=== PATIENT | male | born 1945 | race Caucasian/White ===

== ENCOUNTER 2019-03-23 06:00 | Outpatient (RCR) | payer MEDICARE, BC, SELFPAY | END 2019-03-24 00:01 | LOC: TST 06:00 | PROVIDERS: Family Provider Family Medicine; Visit Provider Family Medicine | DX: R13.10 Dysphagia, unspecified (principal) | CPT/HCPCS: 92523; 92526; 92610 ==

== ENCOUNTER 2019-03-25 06:00 | Outpatient (RCR) | payer MEDICARE, BC, SELFPAY | END 2019-04-24 23:59 | disposition home or self-care (01) | LOC: TST 06:00 | PROVIDERS: Family Provider Family Medicine; PCP Family Medicine; Visit Provider Family Medicine | DX: R13.10 Dysphagia, unspecified (principal) | CPT/HCPCS: 92507; 92526 ==

== ENCOUNTER 2019-04-25 06:00 | Outpatient (RCR) | payer MEDICARE, BC, SELFPAY | END 2019-05-23 23:59 | disposition home or self-care (01) | LOC: TST 06:00 | PROVIDERS: Family Provider Family Medicine; PCP Family Medicine; Visit Provider Family Medicine | DX: R13.10 Dysphagia, unspecified (principal) | CPT/HCPCS: 92507 ==

== ENCOUNTER 2019-05-24 06:00 | Outpatient (RCR) | payer MEDICARE, BC, SELFPAY | END 2019-06-23 23:59 | disposition home or self-care (01) | LOC: TST 06:00 | PROVIDERS: Family Provider Family Medicine; PCP Family Medicine; Visit Provider Family Medicine | DX: R13.10 Dysphagia, unspecified (principal); R13.12 Dysphagia, oropharyngeal phase; R47.1 Dysarthria and anarthria | CPT/HCPCS: 92507 ==

== ENCOUNTER 2023-02-04 06:00 | Outpatient (RCR) | payer MEDICARE, BC, SELFPAY | END 2023-02-21 23:59 | disposition home or self-care (01) | LOC: TST 06:00 | PROVIDERS: Visit Provider Nurse Practitioner Family | DX: C76.0 Malignant neoplasm of head, face and neck (principal) | CPT/HCPCS: 92507; 92526; 92610 ==

== ENCOUNTER 2023-02-18 08:34 | Outpatient (CLI) | payer MEDICARE, BC, SELFPAY ==
--- NOTE | 2023-02-18 08:38 | FL_ITS ---
WS: [id number] MODIFIED BARIUM SWALLOW HISTORY: Other dysphagia FLUOROSCOPY TIME: 1min [id number] # of spot films: 1 Modified barium swallow was performed by the speech pathologist. Fluoroscopy was provided with the pa tient in a lateral projection. Multiple food consistencies were provided. Only thin liquid and nectar liquid is provided. Patient aspirated after both liquids but greater volu me during the thin liquids. There is also difficulty clearing the oral pharynx and early spillage of the barium to the piriform sinuses. Patient did elicit a spontaneous cough during aspiration. IMPRESSION: Aspiration noted with both thin liquid and to a lesser extent the nectar liquid. Please see speech therapist report also for recommendations.
== END 2023-02-18 08:35 | disposition home or self-care (01) ==
LOC: RAD 08:34
PROVIDERS: PCP Family Medicine; Visit Provider Nurse Practitioner Family
DX: C76.0 Malignant neoplasm of head, face and neck (principal); R13.11 Dysphagia, oral phase
CPT/HCPCS: 74230; 92611

== ENCOUNTER 2023-02-22 06:00 | Outpatient (RCR) | payer MEDICARE, BC, SELFPAY | END 2023-03-24 23:59 | disposition home or self-care (01) | LOC: TST 06:00 | PROVIDERS: PCP Family Medicine; Visit Provider Nurse Practitioner Family | DX: C76.0 Malignant neoplasm of head, face and neck (principal) | CPT/HCPCS: 92507 ==

== ENCOUNTER 2023-03-25 06:00 | Outpatient (RCR) | payer MEDICARE, BC, SELFPAY | END 2023-04-24 23:59 | disposition home or self-care (01) | LOC: TST 06:00 | PROVIDERS: PCP Family Medicine; Visit Provider Nurse Practitioner Family | DX: C76.0 Malignant neoplasm of head, face and neck (principal) | CPT/HCPCS: 92507; 92526 ==

== ENCOUNTER 2023-04-25 06:00 | Outpatient (RCR) | payer MEDICARE, BC, SELFPAY | END 2023-05-23 23:59 | disposition home or self-care (01) | LOC: TST 06:00 | PROVIDERS: PCP Family Medicine; Visit Provider Nurse Practitioner Family | DX: C76.0 Malignant neoplasm of head, face and neck (principal) | CPT/HCPCS: 92507; 92526 ==